=== PATIENT | female | born 1965 | race Caucasian/White ===

== ENCOUNTER 2018-07-30 12:47 | Observation (INO) | payer SELFPAY ==
--- NOTE | 2018-07-30 15:17 | XRAY Report ---
Reason: hypoxia and tachycardia Procedure Date: 07/30/2018 Accession Number: [id number] / [id number] Procedure: XR - Chest 2 View X-Ray CPT Code: 15603 FULL RESULT: EXAM: CHEST RADIOGRAPHY EXAM DATE: 07/30/2018 02:58 PM. CLINICAL HISTORY: Hypoxia and tachycardia. COMPARISON: None. TECHNIQUE: 2 views. FINDINGS: Lungs/Pleura: There is mild flattening of the hemidiaphragms on lateral view. Slight interstitial prominence is present. Otherwise no focal airspace opacity. No pleural effusion or pneumothorax. Mediastinum: Cardiomediastinal silhouette is within normal limits. Pulmonary vasculature is unremarkable. Other: None. IMPRESSION: Mild interstitial prominence with flattening of the hemidiaphragms. Findings may represent sequela of COPD or reactive airways disease. RADIA
[2018-07-30] MEDS ORDERED: LIDOCAINE 1% 2 ML VIAL SUBQ ONE (15:21)
[2018-07-30] MEDS ORDERED: DEXAMETHASONE 10 MG/ML VIAL PO STA (15:21)
[2018-07-30] MEDS ORDERED: cefTRIAXone 1 GM VIAL IM STA (15:21)
[2018-07-30] MEDS ORDERED: IPRATROPIUM/ALBUTEROL 3 ML NEB INH STA (15:21)
--- NOTE | 2018-07-30 15:23 | ED Physician Documentation ---
PD HPI URI - Stated complaint Stated Complaint: SOA/CONGESTION - Chief complaint Chief Complaint: Resp - History obtained from History obtained from: Patient - History of Present Illness Timing - onset: How many days ago (4-5) Timing duration: Days (4-5) Timing details: Gradual onset, Still present Associated symptoms: Ear pain, Nasal congestion, Rhinorrhea, Productive cough, Dyspnea Contributing factors: Sick contact Improves by: Rest, Medication Worsened by: Activity Similar symptoms before: Diagnosis (COPD) Recently seen: Not recently seen - Additional information Additional information: 53-year-old female who is visiting here from [place] has a history of COPD and she is on 2 inhalers. She normally will take her Dulera inhaler twice per day and she may need her rescue inhaler once per day. Over the past 4-5 days she is required increased use of her inhaler to where she is using the rescue inhaler 8 times per day. She is producing yellow-green phlegm and she has 2 grandchildren that she is visiting here both of which have been ill with URI. Review of Systems Constitutional: denies: Fever Eyes: denies: Decreased vision Ears: reports: Ear pain Nose: reports: Rhinorrhea / runny nose, Congestion Throat: reports: Sore throat Cardiac: denies: Chest pain / pressure, Palpitations Respiratory: reports: Dyspnea, Cough, Wheezing GI: denies: Abdominal Pain, Nausea, Vomiting : denies: Dysuria PD PAST MEDICAL HISTORY - Past Medical History Past Medical History: Yes Respiratory: Asthma - Past Surgical History Past Surgical History: No - Present Medications Home Medications: Ambulatory Orders Medication Instructions Recorded Confirmed Albuterol Sulf [Ventolin Hfa 1 - 2 puffs INH Q4HR PRN 07/30/18 07/30/18 Inhaler] Mometasone/Formoterol [Dulera 100 13 gm IH BID 07/30/18 07/30/18 Mcg/5 Mcg Inhaler] - Allergies Allergies/Adverse Reactions: Allergies Allergy/AdvReac Type Severity Reaction Status Date / Time No Known Drug Allergies Allergy Verified 07/30/18 12:57 - Social History Does the pt smoke?: Yes Smoking Status: Current every day smoker Does the pt drink ETOH?: Yes Does the pt have substance abuse?: Yes Substance Use and Type: Marijuana - Immunizations Immunizations are current?: Yes PD ED PE NORMAL - Vitals Vital signs reviewed: Yes (tachy and hypertensive ) - General General: Alert and oriented X 3, No acute distress, Well developed/nourished - HEENT HEENT: Atraumatic, PERRL, EOMI, Other (both TM's are markedly inflamed centrally with distortion of the landmarks. ) - Neck Neck: Supple, no meningeal sign, No bony TTP - Cardiac Cardiac: No murmur, Other (tachy to 110) - Respiratory Respiratory: Other (tachypneic at rest with diminished breath sounds ) - Abdomen Abdomen: Soft, Non tender - Back Back: No CVA TTP, No spinal TTP - Derm Derm: Normal color, Warm and dry, No rash - Extremities Extremities: No deformity, No edema - Neuro Neuro: Alert and oriented X 3, front end loader operator 2-12 intact, No motor deficit, No sensory deficit, Normal speech Eye Opening: Spontaneous Motor: Obeys Commands Verbal: Oriented GCS Score: 15 - Psych Psych: Normal mood, Normal affect Results - Vitals Vitals: Vital Signs - 24 hr 07/30/18 07/30/18 07/30/18 12:54 14:33 14:38 Temperature 35.7 C L Heart Rate 127 H 87 112 H Respiratory 16 24 Rate Blood Pressure 131/86 H 115/77 O2 Saturation 94 117 H 94 07/30/18 07/30/18 07/30/18 15:30 16:19 16:40 Temperature Heart Rate 118 H 116 H 126 H Respiratory 20 20 24 Rate Blood Pressure 142/77 H O2 Saturation 88 L 07/30/18 07/30/18 07/30/18 16:43 17:32 17:50 Temperature Heart Rate 122 H 123 H 127 H Respiratory 20 Rate Blood Pressure O2 Saturation 92 88 L Oxygen O2 Source Room air - Rads (name of study) chest 2 view Radiology: Prelim report reviewed (Impression: Mild interstitial prominence with flattening of the hemidiaphragms. Finding may represent sequela of COPD or reactive airway disease.), EMP read indepedently, See rad report PD MEDICAL DECISION MAKING - ED course Complexity details: reviewed results, re-evaluated patient, considered differential, d/w patient ED course: 53-year-old female with cough and congestion after exposure to grandchildren has bilateral otitis on examination and she has markedly diminished breath sounds and is hypoxic on room air on arrival to the emergency department. She is placed onto some oxygen she is given a DuoNeb treatment, dexamethasone and IM Rocephin. She has improvement with the duoneb but remains hypoxic. She is given 2 more treatments with albuterol and continues to wheeze moves air poorly feels some improved but remains hypoxic. Dr. Rubio is consulted for admission at 1800. Departure - Departure Disposition: ED Place in Observation Clinical Impression: Moderate COPD (chronic obstructive pulmonary disease) Otitis media Qualifiers: Otitis media type: suppurative Chronicity: acute Laterality: bilateral Recurrence: not specified as recurrent Spontaneous tympanic membrane rupture: without spontaneous rupture Qualified Code(s): H66.003 - Acute suppurative otitis media without spontaneous rupture of ear drum, bilateral
[2018-07-30] MEDS ORDERED: CHERRY SYRUP 10 ML UDC PO ONE (15:36)
[2018-07-30] MEDS ORDERED: ALBUTEROL NEB 2.5 MG/3 ML INH STA ×2 (16:03→17:11)
[2018-07-30] MEDS ORDERED: ONDANSETRON ODT 4 MG TABLET TL PRN (18:09)
[2018-07-30] MEDS ORDERED: ONDANSETRON 4 MG/2 ML VIAL IVP PRN (18:09)
[2018-07-30] MEDS ORDERED: oxyCODONE 5 MG TABLET PO PRN (18:09)
[2018-07-30] MEDS ORDERED: ACETAMINOPHEN 325 MG TABLET PO PRN (18:09)
[2018-07-30] MEDS ORDERED: ALBUTEROL NEB 2.5 MG/3 ML INH PRN (18:24)
[2018-07-30 18:30] LABS: BASOPHILS % (AUTO) 0.2 %; EOSINOPHILS % (AUTO) 0.1 %; HGB - HEMOGLOBIN 14.4 g/dL (12.0-16.0); LYMPHOCYTES # (AUTO) 0.7 10^3/uL (1.5-3.5); LYMPHOCYTES % (AUTO) 8.1 %; MEAN CORPUSCULAR HEMOGLOBIN 30.7 pg (27.0-31.0); MEAN CORPUSCULAR HGB CONC 33.3 g/dL (32.0-36.0); MEAN PLATELET VOLUME 7.7 fL (7.9-10.8); MONOCYTES # (AUTO) 0.3 10^3/uL (0.0-1.0); MONOCYTES % (AUTO) 3.2 %; NEUTROPHILS # (AUTO) 7.3 10^3/uL (1.5-6.6); NEUTROPHILS % (AUTO) 88.4 %; PLT - PLATELET COUNT 259 10^3/uL (130-450); RED CELL DISTRIBUTION WIDTH 12.3 % (12.0-15.0); WHITE BLOOD COUNT 8.3 x10^3/uL (4.8-10.8)
[2018-07-30 18:44] LABS: ALBUMIN 3.8 g/dL (3.2-5.5); ALBUMIN/GLOBULIN RATIO 0.9 (1.0-2.2); BILIRUBIN,TOTAL 0.4 mg/dL (0.2-1.0); CALCIUM 9.4 mg/dL (8.5-10.3); CREATININE 0.7 mg/dL (0.4-1.0); TOTAL PROTEIN 7.9 g/dL (6.7-8.2)
[2018-07-30] MEDS ORDERED: methylPREDNISolone 4 MG TABLET PO SCH ×2 (19:00→21:00)
[2018-07-30] MEDS: SODIUM CHLORIDE 0.9% 1,000 ML IV SCH (19:25)
[2018-07-30] MEDS ORDERED: AZITHROMYCIN 250 MG TABLET PO STA (21:17)
[2018-07-30] MEDS: TEMAZEPAM 7.5 MG CAPSULE PO PRN (22:12)
[2018-07-30] MEDS: metroNIDAZOLE 250 MG TABLET PO SCH (22:12)
[2018-07-30] MEDS: NICOTINE 14 MG PATCH TOP SCH (22:53)
--- NOTE | 2018-07-31 00:05 | HISTORY & PHYSICAL EXAMINATION ---
DATE OF SERVICE: 07/30/2018 Physician: Shelby Garcia MD PRIMARY CARE PROVIDER: KATHARINA Soria, [facility], ADMITTING PROVIDER: Shelby Garcia MD. CHIEF COMPLAINT: Severe coughing and wheezing and unable to breathe at home. HISTORY OF PRESENT ILLNESS: The patient is a 53-year-old female who is still smoking 10-15 cigarettes a day and has COPD. She lives in [place], [place] and is currently taking care of her father. She came here about [place] and loves coming back. Several of her grandchildren became ill with a URI with sore throats, coughing, sneezing, rhinorrhea, eustachian tube dysfunction. She got the same thing. It has been going on for days. She started taking [id number]-xiv-ydalepf cough medicine and all it did was give her diarrhea and helped none at all with her cold symptoms. She has baseline COPD, which she takes Dulera twice a day. Usually takes a short-acting bronchodilator maybe once or twice a week. With this, she has been taking her short-acting bronchodilators every day and nothing is helping. She has mild anorexia. Diarrhea is without blood in it. There is no abdominal pain. Wheezing has started to become very problematic. It is unresponsive to the mgqx-cri-kkchadf cough medicine or the Dulera or Tylenol, fluids, etc. She came to the emergency room where temperature was 35.7. Pulse rate was 127 and has been in the 120s steadily. Blood pressure was 125/77 and she has 2 liters on nasal cannula. When she goes to room air, she goes to 88%. She had otitis media, wheezing, and coughing on exam. She received a DuoNeb, subsequently followed by two albuterol treatments. She received IM ceftriaxone, as well as p.o. dexamethasone. She registered in the emergency room around noon and by 6 o'clock in the evening, she was still wheezing, still hypoxic. Her chest x-ray shows mild interstitial prominence with flattening of the hemidiaphragms, but no infiltrate. Pulmonary vasculature is unremarkable. She is now placed in observation for COPD with asthma exacerbation. PAST MEDICAL HISTORY 1. COPD as above. 2. Chronic tobacco abuse, still ongoing. 3. G3, P2-0-1-2. 4. Cervical cancer or ASCUS with cryotherapy. She is not sure what the diagnosis was. 5. Restless leg syndrome. ALLERGIES: NO KNOWN DRUG ALLERGIES. MEDICATIONS 1. Dulera with mometasone and formoterol, 100/5 one puff twice a day. 2. Ventolin HFA inhaler 1-2 puffs every 6 hours as needed. She used to take medications for Mirapex, but she ran out of insurance and has not had Mirapex for months. SOCIAL HISTORY: She started smoking at the age of 14. Right now, she is smoking 10-15 cigarettes a day. At most, she smoked 1.5 packs per day. She does marijuana about every 2 days via inhalation. She denies any alcohol abuse. She has 2 drinks maybe once a month. She no longer works. 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 The most recent few years have been taken up by taking care of her mom for 6 years. Then, the week after her mom , she moved in with her dad a year ago and has been taking care of him. This is in [place], [place]. She has been once, . She is currently with a significant other and they are engaged to be . Her fiancee is the one staying in [place] taking care of her dad while she is here visiting her sons. FAMILY HISTORY: She does not know her father. The dad that she refers to and takes care of is her stepfather. Mom of dementia in her 70s. Many half siblings, but because she never knew her father, she really does not know her half siblings. She has two sons and they are healthy. No high blood pressure, diabetes, hypothyroidism, cancer, mental illness, or substance abuse. REVIEW OF SYSTEMS CONSTITUTIONALLY: She denies sweats, unexpected weight changes, but is very tired for the last week with this cold. ENT: Very difficult to see things close up, but she denies glaucoma, cataracts. Very poor teeth and needs to see a dentist. Quite a bit of cavities she says. She thinks she needs a root canal. Right now, she has eustachian tube dysfunction with ear popping, rhinorrhea, coryza, postnasal drip and a mild sore throat. PULMONARY: As above in HPI. CARDIAC: Denies orthopnea, edema, palpitations, valvular heart disease, rheumatic fever. GASTROINTESTINAL: No constipation, no change in bowel habits other than the diarrhea the last two days. No history of colon polyps. No abdominal pain. GENITOURINARY: Has urgency, dysuria. The dysuria is when her urine touches the labia. She has had a chronic vaginal discharge for several weeks now that is quite foul smelling and the labia are exquisitely tender. She has not had sex for a over a year bc of labial and vaginal pain. She had a small nodule left labia over a year ago and now that nodule has grown and there are "lots of nodules" on both labia around the clitoris. Her last pap smear was 2 years ago and she remembers it being normal. JOINTS: Joints are stiff, but do not limit her. No severe back pain or neck pain. No effusions, joint deformities. In the last couple of days, she has been having spasms of her lumbosacral spine from the severe coughing. SKIN: Other than her labia becoming tender and tense, no new moles, lesions, rashes. PSYCHIATRIC: Denies depression, hallucinations, delusions, anxiety. She has no suicidal ideation or homicidal ideation. CENTRAL NERVOUS SYSTEM: She denies seizures, headache, visual changes, facial dysesthesias, migraines, memory loss. PHYSICAL EXAMINATION On examination, patient is seen in observation unit after being transferred there from [facility]. VITAL SIGNS: Temperature is 36.4, pulse is 125, blood pressure 120/70, respirations 20, 94% on 2 liters nasal cannula. GENERAL EXAM: She is a disheveled, middle-aged female, who looks older than stated age with severely poor dentition, a nasal tone of voice, and gets easily short of breath when I have her get undressed for the exam. HEENT: Normocephalic, atraumatic. Pupils reactive. Sclerae are nonicteric. Partial loss of some of her upper teeth and lower teeth. Cavities visible. Halitosis. Oral mucosa pink and moist. Back of the throat is cobblestone, no exudate. She was diagnosed with otitis media in the ER. PULMONARY: Diffuse wheezing in all lung nguyen. With talking to me and sitting in bed, there is no tripoding, no dyspnea on exertion. However, when I get her to get undressed for the rest of her physical exam, she starts to pursed lip breathe, and it takes her 3 minutes to recover. No crackles. rhonchi. CARDIAC: Tachycardic, regular rate and rhythm with a thumping heart rate. No murmurs, rubs or gallops. ABDOMEN: Soft, nontender, normal bowel sounds. Mild suprapubic ache, but no rebound or guarding. No masses. GENITOURINARY: Labia that surround the clitoris are macerated, red, tense with edema and heat. The edema extends outwardly to the mons from the labia. Tender to touch. She has a gambino discharge that is quite foul smelling from the labia. Embedded within the labia are skin tag verrucous growth and small sebaceous woodard lesions. Urethra below this is normal with skin of urethra and vaginal introitis dry, pale from atrophic vaginitis. Perineum normal. No vaginal discharge. EXTREMITIES: Without cyanosis or edema. She is starting to develop some clubbing. Good foot pulses. NEUROLOGICALLY: Alert and oriented to person, place and time. Can follow two- step commands. Able to sit up to welding operator her transferring. Able to get undressed, no assist. No ataxia. No focal deficits. Cranial nerves II-XII appear grossly normal. No tremors. Speech is lucid and sentence structure normal. No word finding difficulty. LABORATORY DATA: Sodium 133, potassium 3.5, anion gap 15, BUN 12, creatinine 0.7, glucose 249. This glucose is checked after she has already had dexamethasone in the emergency room at around 1 this afternoon. Troponin less than 0.04. White cell count 8.3, hemoglobin 14, hematocrit 43, platelets 259. IMAGING: Chest x-ray as above in history of present illness. ASSESSMENT/PLAN 1. Acute exacerbation of chronic obstructive pulmonary disease with asthma. Most likely due to viral syndrome/URI. Unresponsive to ER management and now placed in observation to see if she will respond to nebs, further steroids. Diagnosed with otitis media in ER. - PLAN: Observation status. - Attestation is that the patient will be admitted less than 96 hours. - Rocephin 2 grams IV will be given in the morning. She has received 1 gram IM tonight. - Fixed dosing of DuoNeb every 6 hours with albuterol p.r.n. - Medrol Dosepak to be started. She will be tapered off in the outpatient setting. 2. Tachycardia. Consistent. Possibly associated with the use of albuterol. PLAN: Check EKG to make sure she is not in a SVT rhythm. Right now it is regularly regular. Troponins are negative. 3. Cellulitis of vulva with unclear pathology of skin: ?vestibular papillae, squamous cell cancer?, cellulitis causing maceration of skin? - PLAN: Gynecology consult has been requested. I have spoken to Dr. Rolle. She will see the patient tomorrow morning before discharge. Dr. Rolle recommends that I do two Q-tip swabs for what I initially thought was vaginitis. Now that I have examined her I think she has vulvar disease. The specimens are one for affirm and the other for a wet mount. That should guide treatment for any vaginitis, if any. - Start Flagyl 500 mg p.o. b.i.d. She has already received Rocephin IM. Give azithromycin 1 gram p.o. x1. 4. FULL CODE status. When resuscitation described, she feels that she still has a good quality of life, lots to live for and would like everything done. 5. Deep venous thrombosis prophylaxis will be ELIZABETH thapa. TD: 07/30/2018 21:16 MTDD
[2018-07-31] MEDS ORDERED: LIDOCAINE 1% 2 ML VIAL ONE ×2 (00:12→00:19)
[2018-07-31] MEDS ORDERED: LIDOCAINE 2%-EPI 1:100000 20 ML MDV ONE (00:55)
--- NOTE | 2018-07-31 01:55 | CONSULTATION NOTE ---
Referring Provider Name of Referring Provider:: Dr. Garcia, hospitalist Consult Date: 07/31/18 History of Present Illness - History Obtained From Records Reviewed: yes History obtained from: patient and H&P Exam Limitations: none - History of Present Illness HPI Comment/Other: Pt is here for a COPD with asthma exacerbation. Her intake was notable for a vulvar mass. Pt reports a history of cervical cancer with freezing therapy during multiple times. This was 30y ago. Thinks that her last pap was 2y ago and was normal. Has not been sexually active in over a year. About 6mos ago she noticed a labial lump that has grown over time. It is malodorus and painful. It hurts to wipe and to wash. It bleeds from time to time. Pt is sure that this bleeding is not coming from the vagina. Her LMP was years ago. No weight loss, no fevers, no chills. PMH: COPD, active tobacco use, cervical cancer, restless legs PSH: cervical cryotherapy multiple times 30y ago Allergies: NKDA Medications: Dulera and ventolin FH: mother with dementia in her 70s ROS: no fevers, no weight loss, no chills. No vaginal bleeding. SH: here [place] the [place]. Plans to go to [facility] on Tuesday to care for her elderly (step) father. Exam: HR 119, Temp 98.2, BP 129/70, RR 18, O2 sat 94% on 2L Alert and oriented, pleasant. Spells of coughing with sputum production. Quarter-sized lymph node in left inguinal chain. No lymphadenopathy on the right side. External genitalia is highly abnormal. There is a mass that involves the ventral half of the vulva, on the left side, is very firm and fixed, mostly the left labia minora is affected. Possible clitoral involvement--it was not clearly identified. The mass extends with firmness into the mons. The entire area involved is 7cm x 5cm x 3cm. There is a fissure in the middle of the mass. It is malodorous. Does not appear to be infected--no pus or warmth. Vagina is pink, moist, and without lesions Cervix is pink, appears normal, no abnormal discharge. Pap not performed as the broom and thinprep are not available inpatient. Vulvar biopsy was performed with patient consent. The procedure and recovery were discussed. The risks include bleeding and infection. Consent signed. Area washed with betadine. Then numbed with 1% lidocaine half with epinepherine and half without--6cc total. This did not achieve adequate anesthesia. Numbed further with 1% lidocaine with epinepherine 10cc. The skin could not be elevated. A punch biopsy was not available. Superficial biopsies of the left labia minora were taken with iris scissors. The wound was cauterized with silver nitrate and bleeding was minimal. Patient tolerated the procedure well and there were no complications. 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 Pt is at an elevated risk for vulvar cancer with her history of cervical cancer and her active smoking. (She probably did have cervical cancer as she reports multiple cryotherapy treatments during .) She has a very firm mass and very distorted anatomy. Lymphadenopathy is present. Vulvar biopsy was sent. I did not take a deep sample as I didn't want to get into bleeding. --My clinic ([facility]) will call patient to schedule appointment with me on for results. Unfortunately, the patient initially said that she could not follow up due to moving to [place] on Tuesday. Then she said she might be able to make it but probably not--this was after I said that it was very important to f/u on biopsy results. Ultimately I had to tell her that I thought that the mass is cancer. She has decided to follow up in clinic. I will help to coordinate care with [facility] in [place] if she does have cancer. --She will have black discharge on her underwear from the silver nitrate use --Wound care is simply to wash with soap and water in the shower daily. No ointments needed. --If her pain flares then sitz baths tid (without salt) would be helpful as would a disha-bottle. --To ER PRN signs of infection--fevers or increasing pain. --No evidence of vaginitis, OK to discontinue flagyl. History - Past Medical History Respiratory: reports: Asthma, COPD MRSA Hx?: Yes Other Past Medical History: restless leg - Past Surgical History /RETAIL PERSONAL BANKER: reports: Other Meds/Allgy - Home Medications Home Medications: Ambulatory Orders Medication Instructions Recorded Confirmed Albuterol Sulf [Ventolin Hfa 1 - 2 puffs INH Q4HR PRN 07/30/18 07/30/18 Inhaler] Mometasone/Formoterol [Dulera 100 13 gm IH BID 07/30/18 07/30/18 Mcg/5 Mcg Inhaler] - Allergies Allergies/Adverse Reactions: Allergies Allergy/AdvReac Type Severity Reaction Status Date / Time No Known Drug Allergies Allergy Verified 07/30/18 12:57 Exam - Vital Signs Vital Signs: Vital Signs x48h Temp Pulse Resp BP Pulse Ox 07/30/18 23:52 98.2 F 119 H 18 129/70 94 07/30/18 20:31 97.5 F L 125 H 20 120/70 94 07/30/18 19:03 98.6 F 125 H 22 125/77 91 L Conclusion/Plan - Lab Results Fish Bones: 07/30/18 18:25 07/30/18 18:25
[2018-07-31] MEDS: BUDESONIDE 0.5 MG/2 ML NEB INH SCH ×3 (03:02→21:45)
[2018-07-31] MEDS: IPRATROPIUM/ALBUTEROL 3 ML NEB INH SCH ×5 (03:03→21:45)
[2018-07-31] MEDS: SODIUM CHLORIDE FLUSH 0.9% 10 ML SYRINGE IVP SCH ×4 (03:13→23:43)
[2018-07-31] MEDS: SODIUM CHLORIDE 0.9% 1,000 ML IV SCH (05:42)
[2018-07-31] MEDS ORDERED: cefTRIAXone 2 GM VIAL IVP SCH (09:00)
[2018-07-31] MEDS: cefTRIAXone 2 GM in SODIUM CHLORIDE 0.9% MINIBAG 100 ML IV SCH (09:33)
[2018-07-31] MEDS: metroNIDAZOLE 250 MG TABLET PO SCH (09:39)
[2018-07-31] MEDS: methylPREDNISolone 4 MG TABLET PO SCH ×2 (09:39→12:34)
[2018-07-31] MEDS: NICOTINE 14 MG PATCH TOP SCH ×2 (09:40→23:49)
[2018-07-31] MEDS: POLYETHYLENE GLYCOL 3350 17 GM PACKET PO SCH (09:44)
--- NOTE | 2018-07-31 12:16 | PROVIDER PROGRESS NOTE ---
Subjective - Subjective Subjective: AUDIO ENGINEER progress note, patient seen at 08:45. S: no problems at the biopsy site. No increased pain--just feels like usual. No swelling. 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 My office is calling her to arrange this. --I will need to coordinate aerodynamicist-onc care for her in [place] as she moves there in a few days. --Currently uninsured, is a [place] resident, asked care mgmt to assist with applying for [place] medicaid. Objective - Vital Signs/Intake & Output Vital Signs: Vital Signs x48h Temp Pulse Pulse Resp Pulse Ox 07/31/18 11:51 110 H 20 07/31/18 07:58 98.1 F 103 H 19 94 07/31/18 07:14 112 H 20 07/31/18 04:45 20 94 Intake & Output: Intake & Output 07/28/18 07/29/18 07/30/18 07/31/18 22:59 22:59 23:59 23:59 Intake Total 1400 Balance 1400 - Lab Results Fish Bones: 07/30/18 18:25 07/30/18 18:25 Other Labs: Lab Results x24hrs 07/31/18 07/30/18 07/30/18 Range/Units 11:36 18:25 18:25 WBC (4.8-10.8) x10^3/uL RBC (4.20-5.40) 10^6/uL Hgb (12.0-16.0) g/dL Hct (37.0-47.0) % MCV (81.0-99.0) fL MCH (27.0-31.0) pg MCHC (32.0-36.0) g/dL RDW (12.0-15.0) % Plt Count (130-450) 10^3/uL MPV (7.9-10.8) fL Neut # (Auto) (1.5-6.6) 10^3/uL Lymph # (Auto) (1.5-3.5) 10^3/uL [place] # (Auto) (0.0-1.0) 10^3/uL Eos # (Auto) (0.0-0.7) 10^3/uL Baso # (Auto) (0.0-0.1) 10^3/uL Absolute Nucleated RBC x10^3/uL Nucleated RBC % /100WBC Sodium 133 L (135-145) mmol/L Potassium 3.5 (3.5-5.0) mmol/L Chloride 92 L (101-111) mmol/L Carbon Dioxide 26 (21-32) mmol/L Anion Gap 15.0 H (6-13) BUN 12 (6-20) mg/dL Creatinine 0.7 (0.4-1.0) mg/dL Estimated GFR (MDRD) 87 L (>89) Glucose 249 H (70-100) mg/dL POC Whole Bld Glucose 105 H (70 - 100) mg/dL Calcium 9.4 (8.5-10.3) mg/dL Total Bilirubin 0.4 (0.2-1.0) mg/dL AST 24 (10-42) IU/L ALT 29 (10-60) IU/L Alkaline Phosphatase 74 (42-121) IU/L Troponin I < 0.04 (<0.49) ng/mL Total Protein 7.9 (6.7-8.2) g/dL Albumin 3.8 (3.2-5.5) g/dL Globulin 4.1 (2.1-4.2) g/dL Albumin/Globulin Ratio 0.9 L (1.0-2.2) Lipase 25 (22-51) U/L 07/30/18 Range/Units 18:25 WBC 8.3 (4.8-10.8) x10^3/uL RBC 4.70 (4.20-5.40) 10^6/uL Hgb 14.4 (12.0-16.0) g/dL Hct 43.2 (37.0-47.0) % MCV 92.0 (81.0-99.0) fL MCH 30.7 (27.0-31.0) pg MCHC 33.3 (32.0-36.0) g/dL RDW 12.3 (12.0-15.0) % Plt Count 259 (130-450) 10^3/uL MPV 7.7 L (7.9-10.8) fL Neut # (Auto) 7.3 H (1.5-6.6) 10^3/uL Lymph # (Auto) 0.7 L (1.5-3.5) 10^3/uL [place] # (Auto) 0.3 (0.0-1.0) 10^3/uL Eos # (Auto) 0.0 (0.0-0.7) 10^3/uL Baso # (Auto) 0.0 (0.0-0.1) 10^3/uL Absolute Nucleated RBC 0.00 x10^3/uL Nucleated RBC % 0.0 /100WBC Sodium (135-145) mmol/L Potassium (3.5-5.0) mmol/L Chloride (101-111) mmol/L Carbon Dioxide (21-32) mmol/L Anion Gap (6-13) BUN (6-20) mg/dL Creatinine (0.4-1.0) mg/dL Estimated GFR (MDRD) (>89) Glucose (70-100) mg/dL POC Whole Bld Glucose (70 - 100) mg/dL Calcium (8.5-10.3) mg/dL Total Bilirubin (0.2-1.0) mg/dL AST (10-42) IU/L ALT (10-60) IU/L Alkaline Phosphatase (42-121) IU/L Troponin I (<0.49) ng/mL Total Protein (6.7-8.2) g/dL Albumin (3.2-5.5) g/dL Globulin (2.1-4.2) g/dL Albumin/Globulin Ratio (1.0-2.2) Lipase (22-51) U/L
--- NOTE | 2018-07-31 16:17 | PROVIDER PROGRESS NOTE ---
Subjective - Prog Note Date Prog Note Date: 07/31/18 - Subjective Pt reports feeling: Improved Subjective: pt report her breath is slight better than yesterday but still complain of wheezing, SOB. she denies chest pain, fever, chill. Current Medications - Current Medications Current Medications: Active Medications Acetaminophen (Tylenol) 650 mg PO Q4HR PRN PRN Reason: Pain 1 to 4 Albuterol () 2.5 mg INH RTQ4H PRN PRN Reason: Wheezing Albuterol/Ipratropium (Duoneb) 3 ml INH RTQID [facility] Last Admin: 07/31/18 15:29 Dose: 3 ml Budesonide (Pulmicort) 0.5 mg INH RTBID [facility] Last Admin: 07/31/18 07:09 Dose: 0.5 mg Ceftriaxone Sodium 2 gm/ (Sodium Chloride) 100 mls @ 200 mls/hr IV DAILY [facility] Last Infusion: 07/31/18 10:03 Dose: Infused Methylprednisolone (Solu-Medrol (40mg Vial)) 40 mg IVP TID [facility] Nicotine (Nicoderm) 1 patch TOP DAILY [facility] Last Admin: 07/31/18 09:40 Dose: 1 patch Ondansetron HCl (Zofran Inj) 4 mg IVP Q6HR PRN PRN Reason: Nausea / Vomiting Ondansetron HCl (Zofran Odt) 4 mg TL Q6HR PRN PRN Reason: Nausea / Vomiting Oxycodone HCl (Roxicodone) 5 mg PO Q4HR PRN PRN Reason: Pain 5 to 7 Polyethylene Glycol (Miralax) 17 gm PO DAILY [facility] Last Admin: 07/31/18 09:44 Dose: Not Given Sodium Chloride (Normal Saline Flush 0.9%) 10 ml IVP PRN PRN PRN Reason: NEEDED PER PROVIDER ORDERS Sodium Chloride (Normal Saline Flush 0.9%) 10 ml IVP 0100,0900,1700 [facility] Last Admin: 07/31/18 09:44 Dose: Not Given Temazepam (Restoril) 7.5 mg PO QPM PRN PRN Reason: Insomnia Last Admin: 07/30/18 22:12 Dose: 7.5 mg Albuterol Sulf [Ventolin Hfa Inhaler] 1 - 2 puffs INH Q4HR PRN 07/30/18 Mometasone/Formoterol [Dulera 100 Mcg/5 Mcg Inhaler] 13 gm IH BID 07/30/18 Objective - Vital Signs/Intake & Output Reviewed Vital Signs: Yes Vital Signs: Vital Signs x48h Pulse Resp 07/31/18 15:30 94 20 07/31/18 11:51 110 H 20 Intake & Output: Intake & Output 07/28/18 07/29/18 07/30/18 07/31/18 22:59 22:59 23:59 23:59 Intake Total 1500 Balance 1500 - Objective General Appearance: positive: No acute distress, Alert. negative: Lethargic Eyes Bilateral: positive: Normal inspection, PERRL, No lid inflammation, Conj unctivae nml ENT: positive: ENT inspection nml, Pharynx nml, No signs of dehydration. negative: Purulent nasal drainage, Pharyngeal erythema, Oral lesions Neck: positive: Nml inspection, Thyroid nml, No JVD, Trachea midline. negative: Thyromegaly, Lymphadenopathy (R), Lymphadenopathy (L), Stiff neck, Swelling/bruising, Tracheal deviation Respiratory: positive: Chest non-tender, Wheezes, Rhonchi. negative: Rales Cardiovascular: positive: Regular rate & rhythm, No murmur, No gallop, Irregularly irregular, Tachycardia. negative: Extrasystoles, Bradycardia, JVD present, Systolic murmur, Diastolic murmur Peripheral Pulses: 2+ Radial (R), 2+ Radial (L), 2+ Dorsalis pedis (R), 2+ Dorsalis pedis (L) Abdomen: positive: Non-tender, No organomegaly, Nml bowel sounds, No distention. negative: Tenderness, Guarding, Rebound Back: positive: Nml inspection. negative: CVA tenderness (R), CVA tenderness (L) Skin: positive: Color nml, No rash, Warm, Dry. negative: Cyanosis, Diaphoresis, Pallor Extremities: positive: Non-tender, Full ROM, Nml appearance. negative: Calf t enderness, Joint swelling, Vito's sign/cords Neurologic/Psychiatric: positive: Oriented x3, Motor nml, Sensation nml, Mood/affect nml. negative: Weakness, Sensory loss, Facial droop, Slurred/abnml speech, Depressed mood/affect - Lab Results Fish Bones: 07/30/18 18:25 07/30/18 18:25 Other Labs: Lab Results x24hrs 07/31/18 07/30/18 07/30/18 Range/Units 11:36 18:25 18:25 WBC (4.8-10.8) x10^3/uL RBC (4.20-5.40) 10^6/uL Hgb (12.0-16.0) g/dL Hct (37.0-47.0) % MCV (81.0-99.0) fL MCH (27.0-31.0) pg MCHC (32.0-36.0) g/dL RDW (12.0-15.0) % Plt Count (130-450) 10^3/uL MPV (7.9-10.8) fL Neut # (Auto) (1.5-6.6) 10^3/uL Lymph # (Auto) (1.5-3.5) 10^3/uL [place] # (Auto) (0.0-1.0) 10^3/uL Eos # (Auto) (0.0-0.7) 10^3/uL Baso # (Auto) (0.0-0.1) 10^3/uL Absolute Nucleated RBC x10^3/uL Nucleated RBC % /100WBC Sodium 133 L (135-145) mmol/L Potassium 3.5 (3.5-5.0) mmol/L Chloride 92 L (101-111) mmol/L Carbon Dioxide 26 (21-32) mmol/L Anion Gap 15.0 H (6-13) BUN 12 (6-20) mg/dL Creatinine 0.7 (0.4-1.0) mg/dL Estimated GFR (MDRD) 87 L (>89) Glucose 249 H (70-100) mg/dL POC Whole Bld Glucose 105 H (70 - 100) mg/dL Calcium 9.4 (8.5-10.3) mg/dL Total Bilirubin 0.4 (0.2-1.0) mg/dL AST 24 (10-42) IU/L ALT 29 (10-60) IU/L Alkaline Phosphatase 74 (42-121) IU/L Troponin I < 0.04 (<0.49) ng/mL Total Protein 7.9 (6.7-8.2) g/dL Albumin 3.8 (3.2-5.5) g/dL Globulin 4.1 (2.1-4.2) g/dL Albumin/Globulin Ratio 0.9 L (1.0-2.2) Lipase 25 (22-51) U/L 07/30/18 Range/Units 18:25 WBC 8.3 (4.8-10.8) x10^3/uL RBC 4.70 (4.20-5.40) 10^6/uL Hgb 14.4 (12.0-16.0) g/dL Hct 43.2 (37.0-47.0) % MCV 92.0 (81.0-99.0) fL MCH 30.7 (27.0-31.0) pg MCHC 33.3 (32.0-36.0) g/dL RDW 12.3 (12.0-15.0) % Plt Count 259 (130-450) 10^3/uL MPV 7.7 L (7.9-10.8) fL Neut # (Auto) 7.3 H (1.5-6.6) 10^3/uL Lymph # (Auto) 0.7 L (1.5-3.5) 10^3/uL [place] # (Auto) 0.3 (0.0-1.0) 10^3/uL Eos # (Auto) 0.0 (0.0-0.7) 10^3/uL Baso # (Auto) 0.0 (0.0-0.1) 10^3/uL Absolute Nucleated RBC 0.00 x10^3/uL Nucleated RBC % 0.0 /100WBC Sodium (135-145) mmol/L Potassium (3.5-5.0) mmol/L Chloride (101-111) mmol/L Carbon Dioxide (21-32) mmol/L Anion Gap (6-13) BUN (6-20) mg/dL Creatinine (0.4-1.0) mg/dL Estimated GFR (MDRD) (>89) Glucose (70-100) mg/dL POC Whole Bld Glucose (70 - 100) mg/dL Calcium (8.5-10.3) mg/dL Total Bilirubin (0.2-1.0) mg/dL AST (10-42) IU/L ALT (10-60) IU/L Alkaline Phosphatase (42-121) IU/L Troponin I (<0.49) ng/mL Total Protein (6.7-8.2) g/dL Albumin (3.2-5.5) g/dL Globulin (2.1-4.2) g/dL Albumin/Globulin Ratio (1.0-2.2) Lipase (22-51) U/L ABX Reporting Has patient been on IV antibiotics over the past 48 hours?: Yes Sepsis Event Note (H) - Evaluation Current Stage of Sepsis: Ruled out Assessment/Plan - Problem List (1) COPD exacerbation Impression: pt report he breath is slight better but still wheezing left more right side, and feel SOB. pt has 94% sat on 2 liter of O2 now continue INH treatment solu-medron supplement O2 as needed advise pt quit cigarette smoking (2) Cough productive of yellow sputum Impression: pt report she still had yellow sputum and cough culture sputum continue Azith and Rocephin treatment continue INH treatment (3) Tachycardia Impression: resolved. HR is 94 now. it seems from respiratory distress. (4) Vulvar mass Impression: consulted and thank OBGYN, who had biopsy for pt. Pt will have a followup appointment with OBGYN on next . discuss with out team, will continue to support. Per OBGYN recommend pt did not have vaginitis, and d/c Flagyl.
[2018-07-31] MEDS: methylPREDNISolone SUCCINATE 40 MG/ML VIAL IVP SCH ×2 (16:26→21:59)
[2018-07-31] MEDS: SODIUM CHLORIDE FLUSH 0.9% 10 ML SYRINGE IVP PRN (21:59)
[2018-07-31] MEDS: TEMAZEPAM 7.5 MG CAPSULE PO PRN (23:49)
[2018-08-01] MEDS: methylPREDNISolone SUCCINATE 40 MG/ML VIAL IVP SCH ×2 (05:52→21:10)
[2018-08-01] MEDS: SODIUM CHLORIDE FLUSH 0.9% 10 ML SYRINGE IVP PRN ×3 (05:53→21:10)
[2018-08-01 06:20] LABS: BASOPHILS % (AUTO) 0.2 %; EOSINOPHILS % (AUTO) 0.1 %; HGB - HEMOGLOBIN 13.1 g/dL (12.0-16.0); LYMPHOCYTES # (AUTO) 1.3 10^3/uL (1.5-3.5); LYMPHOCYTES % (AUTO) 15.7 %; MEAN CORPUSCULAR HEMOGLOBIN 30.4 pg (27.0-31.0); MEAN PLATELET VOLUME 7.7 fL (7.9-10.8); MONOCYTES # (AUTO) 0.7 10^3/uL (0.0-1.0); MONOCYTES % (AUTO) 9.3 %; NEUTROPHILS % (AUTO) 74.7 %; PLT - PLATELET COUNT 280 10^3/uL (130-450); RED BLOOD COUNT 4.31 10^6/uL (4.20-5.40); RED CELL DISTRIBUTION WIDTH 11.8 % (12.0-15.0)
[2018-08-01 06:27] LABS: CALCIUM 8.9 mg/dL (8.5-10.3); CREATININE 0.6 mg/dL (0.4-1.0)
[2018-08-01] MEDS: IPRATROPIUM/ALBUTEROL 3 ML NEB INH SCH ×2 (07:15→12:15)
[2018-08-01] MEDS: BUDESONIDE 0.5 MG/2 ML NEB INH SCH ×2 (07:15→23:12)
[2018-08-01] MEDS: cefTRIAXone 2 GM in SODIUM CHLORIDE 0.9% MINIBAG 100 ML IV SCH (08:31)
[2018-08-01] MEDS: POLYETHYLENE GLYCOL 3350 17 GM PACKET PO SCH (08:32)
[2018-08-01] MEDS: SODIUM CHLORIDE FLUSH 0.9% 10 ML SYRINGE IVP SCH ×3 (08:33→23:37)
[2018-08-01] MEDS ORDERED: AZITHROMYCIN 250 MG TABLET PO STA (12:08)
[2018-08-01] MEDS ORDERED: MORPHINE 2 MG/ML CARPUJECT IVP PRN (12:10)
[2018-08-01] MEDS: guaiFENesin 600 MG TABLET PO SCH ×2 (12:53→21:10)
[2018-08-01] MEDS ORDERED: methylPREDNISolone SUCCINATE 40 MG/ML VIAL IVP SCH (13:00)
--- NOTE | 2018-08-01 15:19 | PROVIDER PROGRESS NOTE ---
Subjective - Prog Note Date Prog Note Date: 08/01/18 - Subjective Pt reports feeling: No change Subjective: pt report she feel fine. pt still present tachycardia, SOB, cough with wheezing. pt denies chest pain, fever, chill. Current Medications - Current Medications Current Medications: Active Medications Acetaminophen (Tylenol) 650 mg PO Q4HR PRN PRN Reason: Pain 1 to 4 Albuterol () 2.5 mg INH RTQ4H PRN PRN Reason: Wheezing Albuterol/Ipratropium (Duoneb) 3 ml INH RTQID [facility] Last Admin: 08/01/18 12:15 Dose: 3 ml Budesonide (Pulmicort) 0.5 mg INH RTBID [facility] Last Admin: 08/01/18 07:15 Dose: 0.5 mg Enoxaparin Sodium (Lovenox) 40 mg SUBQ DAILY [facility] Guaifenesin (Mucinex) 600 mg PO BID [facility] Last Admin: 08/01/18 12:53 Dose: 600 mg Ceftriaxone Sodium 2 gm/ (Sodium Chloride) 100 mls @ 200 mls/hr IV DAILY [facility] Last Infusion: 08/01/18 09:01 Dose: Infused Methylprednisolone (Solu-Medrol (40mg Vial)) 60 mg IVP TID [facility] Morphine Sulfate (Morphine (Carpuject)) 2 mg IVP Q2HR PRN PRN Reason: PAIN Nicotine (Nicoderm) 1 patch TOP DAILY [facility] Last Admin: 07/31/18 23:49 Dose: 1 patch Ondansetron HCl (Zofran Inj) 4 mg IVP Q6HR PRN PRN Reason: Nausea / Vomiting Ondansetron HCl (Zofran Odt) 4 mg TL Q6HR PRN PRN Reason: Nausea / Vomiting Oxycodone HCl (Roxicodone) 5 mg PO Q4HR PRN PRN Reason: Pain 5 to 7 Polyethylene Glycol (Miralax) 17 gm PO DAILY [facility] Last Admin: 08/01/18 08:32 Dose: Not Given Sodium Chloride (Normal Saline Flush 0.9%) 10 ml IVP PRN PRN PRN Reason: NEEDED PER PROVIDER ORDERS Last Admin: 08/01/18 12:54 Dose: 10 ml Sodium Chloride (Normal Saline Flush 0.9%) 10 ml IVP 0100,0900,1700 [facility] Last Admin: 08/01/18 08:33 Dose: 10 ml Temazepam (Restoril) 7.5 mg PO QPM PRN PRN Reason: Insomnia Last Admin: 07/31/18 23:49 Dose: 7.5 mg Albuterol Sulf [Ventolin Hfa Inhaler] 1 - 2 puffs INH Q4HR PRN 07/30/18 Mometasone/Formoterol [Dulera 100 Mcg/5 Mcg Inhaler] 13 gm IH BID 07/30/18 Objective - Vital Signs/Intake & Output Reviewed Vital Signs: Yes Vital Signs: Vital Signs x48h Temp Pulse Pulse Resp BP Pulse Ox 08/01/18 12:56 36.7 C 115 H 20 128/64 92 08/01/18 12:15 105 H 18 08/01/18 07:31 37.1 C 76 17 101/67 96 Intake & Output: Intake & Output 07/29/18 07/30/18 07/31/18 08/01/18 22:59 23:59 23:59 23:59 Intake Total 2740 600 Balance 2740 600 - Objective General Appearance: positive: No acute distress, Alert. negative: Lethargic Eyes Bilateral: positive: Normal inspection, PERRL, No lid inflammation, Conjunctivae nml ENT: positive: ENT inspection nml, Pharynx nml, No signs of dehydration. negative: Purulent nasal drainage, Pharyngeal erythema, Oral lesions Neck: positive: Nml inspection, Thyroid nml, No JVD, Trachea midline. negative: Thyromegaly, Lymphadenopathy (R), Lymphadenopathy (L), Stiff neck, Swe lling/bruising, Tracheal deviation Respiratory: positive: Chest non-tender, Wheezes, Rales. negative: Rhonchi Cardiovascular: positive: Regular rate & rhythm, No murmur, No gallop, Tachycardia. negative: Irregularly irregular, Extrasystoles, Bradycardia, JVD present, Systolic murmur, Diastolic murmur Peripheral Pulses: 2+ Radial (R), 2+ Radial (L), 2+ Dorsalis pedis (R), 2+ Dorsalis pedis (L) Abdomen: positive: Non-tender, No organomegaly, Nml bowel sounds, No distention. negative: Tenderness, Guarding, Rebound Back: positive: Nml inspection. negative: CVA tenderness (R), CVA tenderness (L) Skin: positive: Color nml, No rash, Warm, Dry. negative: Cyanosis, Diaphoresis, Pallor Extremities: positive: Non-tender, Full ROM, Nml appearance. negative: Calf tenderness, Joint swelling, Vito's sign/cords Neurologic/Psychiatric: positive: Oriented x3, Motor nml, Sensation nml, Mood/affect nml. negative: Weakness, Sensory loss, Facial droop, Slurred/abnml speech, Depressed mood/affect - Lab Results Fish Bones: 08/01/18 05:59 08/01/18 05:59 Other Labs: Lab Results x24hrs 08/01/18 08/01/18 Range/Units 05:59 05:59 WBC 8.0 (4.8-10.8) x10^3/uL RBC 4.31 (4.20-5.40) 10^6/uL Hgb 13.1 (12.0-16.0) g/dL Hct 39.6 (37.0-47.0) % MCV 92.0 (81.0-99.0) fL MCH 30.4 (27.0-31.0) pg MCHC 33.0 (32.0-36.0) g/dL RDW 11.8 L (12.0-15.0) % Plt Count 280 (130-450) 10^3/uL MPV 7.7 L (7.9-10.8) fL Neut # (Auto) 6.0 (1.5-6.6) 10^3/uL Lymph # (Auto) 1.3 L (1.5-3.5) 10^3/uL [place] # (Auto) 0.7 (0.0-1.0) 10^3/uL Eos # (Auto) 0.0 (0.0-0.7) 10^3/uL Baso # (Auto) 0.0 (0.0-0.1) 10^3/uL Absolute Nucleated RBC 0.00 x10^3/uL Nucleated RBC % 0.0 /100WBC Sodium 137 (135-145) mmol/L Potassium 4.0 (3.5-5.0) mmol/L Chloride 100 L (101-111) mmol/L Carbon Dioxide 30 (21-32) mmol/L Anion Gap 7.0 (6-13) BUN 11 (6-20) mg/dL Creatinine 0.6 (0.4-1.0) mg/dL Estimated GFR (MDRD) 104 (>89) Glucose 165 H (70-100) mg/dL Calcium 8.9 (8.5-10.3) mg/dL ABX Reporting Has patient been on IV antibiotics over the past 48 hours?: Yes Sepsis Event Note (H) - Evaluation Current Stage of Sepsis: Ruled out Assessment/Plan - Problem List (1) COPD exacerbation Impression: 08/01 slight improved, 92% sats on room air, but she still present wheezing, cough, tachycardia, SOB at exertion increase solu-metro to 60mg tid switch albuterol to levalbuterol pt report he breath is slight better but still wheezing left more right side, and feel SOB. pt has 94% sat on 2 liter of O2 now continue INH treatment solu-medron supplement O2 as needed advise pt quit cigarette smoking (2) Cough productive of yellow sputum Impression: 08/01 sputum culture is pending continue antibiotics add mucinix pt report she still had yellow sputum and cough culture sputum continue Azith and Rocephin treatment continue INH treatment (3) Tachycardia Impression: 08/01 pt still has tachycardia at HR 120, SOB at exertion switch to levabulterol treat underline COPD and infection add tele, EKG resolved. HR is 94 now. it seems from respiratory distress. (4) Vulvar mass Impression: consulted and thank OBGYN, who had biopsy for pt. Pt will have a followup appointment with OBGYN on next . discuss with out team, will continue to support. Per OBGYN recommend pt did not have vaginitis, and d/c Flagyl.
[2018-08-01] MEDS ORDERED: LEVALBUTEROL 1.25 MG/3 ML NEB INH SCH ×3 (16:00)
[2018-08-01] MEDS ORDERED: IPRATROPIUM 0.2 MG/ML NEB INH SCH ×2 (19:00)
[2018-08-01] MEDS ORDERED: NICOTINE 14 MG PATCH TOP SCH (19:00)
[2018-08-01] MEDS: TEMAZEPAM 7.5 MG CAPSULE PO PRN (21:36)
[2018-08-01] MEDS ORDERED: LEVALBUTEROL 1.25 MG/3 ML NEB INH PRN (22:48)
[2018-08-02] MEDS: BENZOCAINE/MENTHOL LOZENGE MM PRN ×2 (00:59→05:29)
[2018-08-02] MEDS: methylPREDNISolone SUCCINATE 40 MG/ML VIAL IVP SCH (05:30)
[2018-08-02] MEDS: SODIUM CHLORIDE FLUSH 0.9% 10 ML SYRINGE IVP PRN (05:30)
[2018-08-02 06:30] LABS: BASOPHILS % (AUTO) 0.1 %; HGB - HEMOGLOBIN 13.7 g/dL (12.0-16.0); LYMPHOCYTES # (AUTO) 1.7 10^3/uL (1.5-3.5); LYMPHOCYTES % (AUTO) 12.5 %; MEAN CORPUSCULAR HEMOGLOBIN 30.2 pg (27.0-31.0); MEAN CORPUSCULAR HGB CONC 32.6 g/dL (32.0-36.0); MEAN CORPUSCULAR VOLUME 92.6 fL (81.0-99.0); MEAN PLATELET VOLUME 7.4 fL (7.9-10.8); MONOCYTES # (AUTO) 0.9 10^3/uL (0.0-1.0); MONOCYTES % (AUTO) 6.4 %; NEUTROPHILS # (AUTO) 10.9 10^3/uL (1.5-6.6); PLT - PLATELET COUNT 367 10^3/uL (130-450); RED BLOOD COUNT 4.54 10^6/uL (4.20-5.40); WHITE BLOOD COUNT 13.4 x10^3/uL (4.8-10.8)
[2018-08-02 06:35] LABS: CALCIUM 9.1 mg/dL (8.5-10.3); CREATININE 0.5 mg/dL (0.4-1.0)
[2018-08-02] MEDS ORDERED: FORMOTEROL FUMARATE NEB 20 MCG/2 ML INH SCH (07:00)
[2018-08-02] MEDS: BUDESONIDE 0.5 MG/2 ML NEB INH SCH (07:30)
[2018-08-02] MEDS: SODIUM CHLORIDE FLUSH 0.9% 10 ML SYRINGE IVP SCH (08:39)
[2018-08-02] MEDS: cefTRIAXone 2 GM in SODIUM CHLORIDE 0.9% MINIBAG 100 ML IV SCH (08:40)
[2018-08-02] MEDS: guaiFENesin 600 MG TABLET PO SCH (08:43)
[2018-08-02] MEDS: POLYETHYLENE GLYCOL 3350 17 GM PACKET PO SCH (08:43)
[2018-08-02] MEDS ORDERED: ENOXAPARIN 40 MG/0.4 ML SYRINGE SUBQ SCH (09:00)
[2018-08-02 11:14] VITALS: BP 119/55
--- NOTE | 2018-08-02 13:31 | CONSULTATION NOTE ---
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 She had a large mass and only one region was sampled. Discussed results with patient and with hospitalist team. Pt is moving to [place] in a few days and we are unable to coordinate care there. Pt has been advised to see a PCP and a water filterer. I encouraged her to go to the ER shortly after arrival in [place] if her vulva is hurting--care would likely then be expedited. Patient voices understanding. Thank you for allowing me to be a part of her care. History - Past Medical History Respiratory: reports: Asthma, COPD MRSA Hx?: Yes Other Past Medical History: restless leg - Past Surgical History /PEDIATRIC ACUTE CARE UNIT NURSE: reports: Other Meds/Allgy - Home Medications Home Medications: Ambulatory Orders Medication Instructions Recorded Confirmed Albuterol Sulf [Ventolin Hfa 1 - 2 puffs INH Q4HR PRN 07/30/18 07/30/18 Inhaler] Mometasone/Formoterol [Dulera 100 13 gm IH BID 07/30/18 07/30/18 Mcg/5 Mcg Inhaler] - Allergies Allergies/Adverse Reactions: Allergies Allergy/AdvReac Type Severity Reaction Status Date / Time No Known Drug Allergies Allergy Verified 07/30/18 12:57 Exam - Vital Signs Vital Signs: Vital Signs x48h Temp Pulse Pulse Resp BP Pulse Ox 08/02/18 11:13 98.2 F 113 H 18 119/55 L 99 08/02/18 07:37 97.9 F 89 18 108/92 H 95 08/02/18 07:30 86 16 Conclusion/Plan - Lab Results Fish Bones: 08/02/18 06:16 08/02/18 06:16
--- NOTE | 2018-08-02 13:46 | Discharge Plan ---
Discharge Plan Disposition: Home, Self Care Condition: Poor Prescriptions: Cephalexin [Keflex] 500 mg PO BID #10 capsule Fluconazole 100 mg PO DAILY #5 tablet guaiFENesin [Mucinex] 600 mg PO BID #14 tablet Nicotine 14 mg Patch [Nicoderm] 1 patch TOP DAILY PRN #10 patch PRN Reason: Nicotine Craving predniSONE [Deltasone] 10 mg PO [id number] #31 tab Diet: Regular Activity Restrictions: Activity as Tolerated Shower Restrictions: No (fall precaution) Instruction Topics: Nicotine skin patches, COPD, Pneumonia Prevent, Quit Smoking Plan Additional Instructions or Follow Up instructions: You are moving to [place] in a few days and we are unable to coordinate care with there. You may see your PCP and home care scheduler as sooner as you establish your medical care. Should your symptoms return or worsen, you may present ER or call 911 for help. No Smoking: If you smoke, Please STOP! Call for help.
--- NOTE | 2018-08-02 13:55 | DISCHARGE SUMMARY ---
Discharge Summary Discharge Date: 08/02/18 Discharging Provider: BOLES Condition at Discharge: Poor Discharge Disposition: Home, Self Care Discharge Facility Name: home - DIAGNOSES Admission Diagnoses: (1) COPD exacerbation (2) Cough productive of yellow sputum (3) Tachycardia (4) Vulvar mass Discharge Diagnoses with Status of Each Condition: 1) COPD exacerbation stable. pt has RT desat and sat study. pt has 92% sat on room air when she walked 260 feet. pt is not qualified for home O2 per RT recommendation. pt's cough is controlled. pt is advise to quit cigarette smoking. pt has home HFA, pt is prescribed steroid to wane down for 10 days (2) Cough productive of yellow sputum controlled. pt is prescribed antibiotics and antifungus. pt's sputum culture reveal yeast. (3) Tachycardia pt and nurse report he drunk lots of coffee today. Her HR is normal at night and morning. Pt report after she drink coffee her HR increase. she usually drink lots of coffee. EKG reveals ST. pt denies chest pain, palpitation. pt is totally asymptomatic. Pt state she walked with RT, she did not feel SOB. Pt request to be discharged today. Advise pt reduce to drink coffee. (4) Vulvar mass pt will move to [place] in a few days. we are unable to cooperate care for pt. Pt was consulted with OBGYN in [facility], and pt had biopsy. Pt was informed biopsy result by our OBGYN. Out OBYNG advised pt. pt is also advised to followup PCP and OBGYN as soon she establish her medical care provider in [place]. pt state she understand and will followup PCP and OBGYN I discussed the effects and side effects of all medications I prescribed with pt. pt state she understood. - HPI History of Present Illness: pt came to ER and was found to hav 88% sats on room air. she was found SOB, wheezing and cough. pt report she had yellowish sputum cough. pt report she cur rently smoke cigarette 10-15 per day. - HOSPITAL COURSE Hospital Course: pt was admitted for acute respiratory failure with hypoxia, cough, SOB, and wheezing. pt was found to have COPD exacerbation with infection. pt is also current cigarette smoker, 10-15 cigarette per day. pt was treated with steroid, INH breath treatment, and antibiotics. after treatment pt has 92% on room air walk with RT for 260 feet without problem. pt request to be d/c today pt also has vulvar mass. OBGYN was consulted. pt had biopsy, the result was informed to pt by OBGYN, pre-cancer. pt was advised to followup PCP and OBGYN as soon she establish her medical care provider in [place]. - ALLERGIES Allergies/Adverse Reactions: Allergies Allergy/AdvReac Type Severity Reaction Status Date / Time No Known Drug Allergies Allergy Verified 07/30/18 12:57 - MEDICATIONS Home Medications: Ambulatory Orders Medication Instructions Recorded Confirmed Albuterol Sulf [Ventolin Hfa 1 - 2 puffs INH Q4HR PRN 07/30/18 07/30/18 Inhaler] Mometasone/Formoterol [Dulera 100 13 gm IH BID 07/30/18 07/30/18 Mcg/5 Mcg Inhaler] Cephalexin [Keflex] 500 mg PO BID #10 capsule 08/02/18 Fluconazole 100 mg PO DAILY #5 tablet 08/02/18 Nicotine 14 mg Patch [Nicoderm] 1 patch TOP DAILY PRN #10 patch 08/02/18 guaiFENesin [Mucinex] 600 mg PO BID #14 tablet 08/02/18 predniSONE [Deltasone] 10 mg PO [id number] #31 tab 08/02/18 - PHYSICAL EXAM AT DISCHARGE General Appearance: positive: No acute distress, Alert. negative: Lethargic Eyes Bilateral: positive: Normal inspection, PERRL, No lid inflammation, Co njunctivae nml ENT: positive: ENT inspection nml, Pharynx nml, No signs of dehydration. negative: Purulent nasal drainage, Pharyngeal erythema, Oral lesions Neck: positive: Nml inspection, Thyroid nml, No JVD, Trachea midline. negative: Thyromegaly, Lymphadenopathy (R), Lymphadenopathy (L), Stiff neck, Swelling/bruising, Tracheal deviation Respiratory: positive: Chest non-tender, No respiratory distress, Wheezes. negative: Rales, Rhonchi Cardiovascular: positive: Regular rate & rhythm, No murmur, No gallop, Tachycardia (pt has normal HR at night and morning but increase HR when she had coffee. she drink lots of coffee daily per she report. ). negative: Irregularly irregular, Extrasystoles, Bradycardia, JVD present, Systolic murmur, Diastolic murmur Peripheral Pulses: positive: 2+ Abdomen: positive: Non-tender, No organomegaly, Nml bowel sounds, No distention. negative: Tenderness, Guarding, Rebound Back: positive: Nml inspection. negative: CVA tenderness (R), CVA tenderness (L) Skin: positive: Color nml, No rash, Warm, Dry. negative: Cyanosis, Diaphoresis, Pallor Extremities: positive: Non-tender, Full ROM, Nml appearance. negative: Calf tenderness, Joint swelling, Vito's sign/cords Neurologic/Psychiatric: positive: Oriented x3, Motor nml, Sensation nml, Mood/affect nml. negative: Weakness, Sensory loss, Facial droop, Slurred/abnml speech, Depressed mood/affect - LABS Result Diagrams: 08/02/18 06:16 08/02/18 06:16 - SEPSIS Current Stage of Sepsis: Ruled out - FOLLOW UP Follow Up: You are moving to [place] in a few days and we are unable to coordinate care with there. You may see your PCP and byproducts maker as sooner as you establish your medical care. Should your symptoms return or worsen, you may present ER or call 911 for help. - TIME SPENT Time Spent in Discharge (Minutes): 60
== END 2018-08-02 15:14 | disposition home or self-care (01) ==
LOC: ED 12:47 → OBS 18:09
PROVIDERS: ADMIT Specialist; ATTEND Nurse Practitioner Gerontology
DX: J44.1 Chronic obstructive pulmonary disease with (acute) exacerbation (principal); J44.0 Chronic obstructive pulmonary disease with (acute) lower respiratory infection; J18.9 Pneumonia, unspecified organism; H66.93 Otitis media, unspecified, bilateral; F17.210 Nicotine dependence, cigarettes, uncomplicated; N89.1 Moderate vaginal dysplasia; K52.1 Toxic gastroenteritis and colitis; R00.0 Tachycardia, unspecified; T48.4X5A Adverse effect of expectorants, initial encounter; R39.15 Urgency of urination; R30.0 Dysuria; G25.81 Restless legs syndrome; Z79.51 Long term (current) use of inhaled steroids; Z72.89 Other problems related to lifestyle; Z85.41 Personal history of malignant neoplasm of cervix uteri
CPT/HCPCS: 36415; 56605; 71046; 80048; 80053; 83690; 84484; 85025; 87070; 87205; 87210; 87491; 87591; 93005; 94640; 94664; 94761; 96361; 96365; 96366; 96372; 96375; 96376; 99283; 99284; 99406; A9270; G0378; J1650; J7509; J7626; 87480; 87510; 87660